=== PATIENT | male | born 1965 | race Caucasian/White ===

== ENCOUNTER → 2018-10-18 11:17 | Outpatient (CLI) | payer OTHER, SELFPAY ==
[2018-10-18 12:25] LABS: Basophil# 0.02 X10^3/uL; Basophil% 0.4 % (0-1); Eosinophil# 0.01 X10^3/uL; Eosinophils% 0.2 % (0-5); Hematocrit 46.3 % (40-54); Hemoglobin 16.2 g/dl (13.0-16.5); Lymphocyte % 24.5 % (19-41); Mean Corpuscular Hgb 34.1 pg (27.0-32.0); Mean Corpuscular Volume 97.5 fL (80-94); Mean Platelet Vol. 8.8 fl (6.2-12.0); Monocyte# 0.39 X10^3/uL; Monocyte% 8.7 % (0-10); Neutrophil # 2.96 X10^3/uL (2.7-7.7); Platelet Count 277 K/mm3 (150-450); RBC Distribution Width CV 12.3 % (11.6-14.6); RBC Distribution Width SD 42.9 fl (35.1-43.9); Red Blood Count 4.75 M/mm3 (4.6-6.2); White Blood Count 4.5 K/mm3 (4.4-11.0)
[2018-10-18 12:26] LABS: POSITIVE COUNT NO; POSITIVE DIFFERENTIAL NO; POSITIVE MORPHOLOGY NO
[2018-10-18 12:53] LABS: Vitamin D,25 Hydroxy 57.2 ng/mL (29.95-100.01)
[2018-10-18 12:54] LABS: Anion Gap 8 (5-15); BUN 16 mg/dL (7-18); BUN/Creat Ratio 14.8 RATIO (10-20); Calcium,Total 9.4 mg/dL (8.5-10.1); Chloride 104 mmol/L (98-107); Cholesterol 215 mg/dL (200); Creatinine, Serum 1.08 mg/dL (0.70-1.30); EST Glomerular Filtration Rate 76 mL/min (>60); Est Glom Filt Rate - Afr Amer 92 mL/min (>60); Glucose 87 mg/dL (74-106); High Density Lipoprotein 65 mg/dL; PSA,Total - Annual Screen 1.75 ng/mL (0.00-4.00); Potassium 4.1 mmol/L (3.5-5.1); Sodium Level 140 mmol/L (136-145); Triglycerides 84 mg/dL; Very Low Density Lipoprotein 17 mg/dL (5-40)
== END ==
PROVIDERS: Family Provider Family Medicine; PCP Family Medicine; Visit Provider Family Medicine
DX: Z00.00 Encounter for general adult medical examination without abnormal findings (principal); Z12.5 Encounter for screening for malignant neoplasm of prostate; Z13.220 Encounter for screening for lipoid disorders
CPT/HCPCS: 36415; 80048; 80061; 82306; 84153; 85025; G0103

== ENCOUNTER → 2019-03-21 15:03 | Outpatient (CLI) | payer OTHER, SELFPAY ==
--- NOTE | 2019-03-21 | POL_PTH ---
PATIENT: YOLA HANNON LOC: [facility] U#:[id number] AGE/SX: 60/M ROOM: RE03/21/[address]: Dr. Jama Sinclair MD : [id number] BED: DIS: SPEC #: [id number] RECD: 03/21/19 14:33 STATUS: LATOYA BALAJI #: [id number] BASILIO: 03/21/19 00:[address]: Jama Sinclair DEPT: SURGICAL PATHOLOGY RECD BY: Alesia Robertson ENTERED: 03/21/19 15:36 SP TYPE: Polyp OTHR DR: Dr. Connor Collins MD [facility] Tissues: POLYP Procedures: Surgery Specimen Level IV HEADER OPERATION: Colonoscopy with biopsy PRE-OP DIAGNOSIS: Screening TISSUE SUBMITTED: Biopsy cecal polyp, rule out adenoma MICROSCOPIC DIAGNOSIS Cecal polyp, biopsy: Fragments of hyperplastic polyp. SJ:uyen 03/22/19 MICROSCOPIC DESCRIPTION Slides are reviewed. GROSS DESCRIPTION Received in fixative is one container labeled with the patient's name and designated biopsy polyp. The specimen consists of multiple irregular fragments of light monteiro soft tissue that in aggregate measure 0.5 x 0.3 x 0.1 cm. The specimen is totally submitted in one cassette. / SJ:uyen 03/21/19 TC:1 CPT: 87302
== END ==
PROVIDERS: Family Provider Family Medicine; PCP Family Medicine; Referring Provider Internal Medicine Gastroenterology; Visit Provider Internal Medicine Gastroenterology
DX: Z12.11 Encounter for screening for malignant neoplasm of colon (principal)
CPT/HCPCS: 88305

== ENCOUNTER 2022-12-18 11:05 | Inpatient (IN) | payer OTHER, SELFPAY ==
[2022-12-18 11:06] VITALS: BP 145/89; PULSE 83; RESP 17; TEMP 36.1; O2SAT 100; BMI 23.9
--- NOTE | 2022-12-18 11:17 | CT_ITS ---
STUDY: CT ABDOMEN AND PELVIS WITHOUT CONTRAST REASON FOR EXAM: Male, 57 years old. Abd pain, vomiting RADIATION DOSAGE (If Supplied By Facility): CTDIvol = ( 7.60 ) mGy, DLP = ( 395.17 ) mGycm TECHNIQUE: Transaxial images were obtained from the dome of the diaphragm to the symphysis pubis without oral contrast, and without intravenous contrast. Sagittal and coronal images were reconstructed. Individualized dose optimization techniques were used for this CT. COMPARISON: None. FINDINGS: The visualized lung bases are unremarkable. The visualized portions of the heart are within normal limits. Normal liver. Normal gallbladder and extrahepatic biliary system. Normal spleen. Normal pancreas. Normal bilateral adrenal glands. Normal right kidney. Normal left kidney. Distended stomach with fluid and oral contrast material. There are dilated loops of the small intestine with a non-distended colon consistent with a small bowel obstruction. The transition point is in the left lower quadrant in the mid ileal loops. Questionable anastomosis at that site. This is best seen on axial image #75 and coronal image #70. A large amount of fecal material is seen in the colon. The appendix is visualized and appears normal. There is minimal atherosclerotic calcification of the abdominal aorta, without a demonstrated aneurysm. Normal inferior vena cava. Normal retroperitoneum. Normal urinary bladder. Normal abdominal wall. Loss of the normal lumbar lordosis. There is evidence of retrolisthesis of L5 on S1 with irregularity seen along the inferior endplate of the L5 vertebrae as well as the superior endplate of the S1 vertebrae. CT/Abdomen/Pel W ORAL Cont Only IMPRESSION: Findings in comparison with small bowel obstruction with the transition point in the left lower quadrant in mid ileal loops as described. Electronically Signed: Joel Simon MD at 14:11 EST ,
--- NOTE | 2022-12-18 11:17 | EX.ED.DYSGE1 ---
HPI History of Present Illness Chief Complaint: Abd Pain Informant: patient Onset/Context/Timing Onset: Yesterday Context: Gradual Onset Current Severity: Moderate Maximum Severity: Moderate Narrative Narrative: Patient present secondary to abdominal pain with vomiting and diarrhea. He states around 7 PM last evening he started getting abdominal cramping and had diarrhea. Earlier this morning he started having vomiting. states the most recent episode of vomitus looked like he was passing stool. She denies that it looked like coffee-ground emesis. No blood associated with the vomitus. No fever or chills. Only prior abdominal surgery was kidney surgery in his late teens. [facility] Medical History (Updated 12/18/22 @ 15:[address] Clotilde Peraza MD) UPJ obstruction, congenital Medical History no medical history no medical history Home Medications NK 12/18/22 [History Last Taken Unknown] Allergy/AdvReac Type Severity Reaction Status Date / Time No Known Allergies Allergy Verified 12/18/22 11:05 Social History Smoking Status: Never smoker ROS ROS ED Constitutional Constitutional ED: Denies chills or fever(s) Eyes Eyes: Denies change in vision or discharge from eye(s) ENT ENT ED: Denies discharge from eye(s), rhinorrhea or sore throat Cardiovascular Cardiovascular: Denies chest pain or palpitations Respiratory/Chest Respiratory/Chest: Denies cough or dyspnea Gastrointestinal Gastrointestinal: Reports abdominal pain, diarrhea, nausea and vomiting Genitourinary Genitourinary ED: Denies dysuria Musculoskeletal Musculoskeletal: Denies back pain or extremity pain Integumentary Denies Abrasions or rash Neurologic Neurologic: Denies headache(s) or weakness Psychiatric Psychiatric: Denies anxiety or depression Allergic/Immunologic Allergic/Immunologic ED: Denies lip swelling or urticaria EXAM Physical Exam Const Vital Signs: 12/18/22 11:06 12/18/22 14:56 Temperature 96.9 F L Temperature Source Temporal Pulse Rate 83 77 Respiratory Rate 17 16 Blood Pressure 145/89 H 159/99 H Blood Pressure Mean 107 119 Pulse Ox 100 100 Oxygen Delivery Method Room Air Room Air Positive well nourished and well developed General Appearance ED: well developed HEENT Reports normocephalic and head/scalp atraumatic Eyes PERRL and EOMs intact bilaterally Neck supple Chest Wall inspection of chest normal and palpation of chest normal Resp normal respiratory effort and clear to auscultation bilaterally Cardio regular rate and regular rhythm GI GI Narrative: Abdomen soft with no focal tenderness palpation. Minimal diffuse tenderness. No guarding or rebound. Palpation: soft Back/Spine no CVA tenderness Extremity normal to inspection Neuro oriented x3 and no sensory deficits noted Sensorium / Orientation: alert Motor Exam: strength 5/5 throughout Psych mental status grossly normal Skin no rashes or lesions noted MDM MDM MDM Narrative Medical decision making narrative: Patient is given morphine and Zofran along with IV fluids. Lab work obtained to evaluate for leukocytosis. Chemistry studies obtained to evaluate for electrolyte derangement. CT scan of the abdomen and pelvis obtained with contrast. Lab Data Attestation: I reviewed the patient's lab results. Labs: Laboratory Results - last 24 hr 12/18/22 12/18/22 11:30 11:30 WBC 12.0 H RBC 5.32 Hgb 17.9 H Hct 51.7 MCV 97.2 H MCH 33.6 H MCHC 34.6 RDW Std Deviation 42.5 RDW Coeff of Merle 11.9 Plt Count 314 MPV 8.7 Immature Gran % (Auto) 0.400 Neut % (Auto) 88.7 H Lymph % (Auto) 5.2 L Gregory % (Auto) 5.5 Eos % (Auto) 0.0 Baso % (Auto) 0.2 Absolute Neuts (auto) 10.7 H Absolute Lymphs (auto) 0.62 L Nucleated RBC % 0 Sodium 142 Potassium 4.2 Chloride 102 Carbon Dioxide 28.0 Anion Gap 12 BUN 19 H Creatinine 1.18 Estim Creat Clear Calc 78.06 Est GFR (MDRD) Af Amer 82 Est GFR (MDRD) Non-Af 68 BUN/Creatinine Ratio 16.1 Glucose 165 H Calcium 10.1 Total Bilirubin 0.90 Direct Bilirubin 0.23 AST 19 ALT 32 Alkaline Phosphatase 107 Total Protein 8.0 Albumin 4.6 Globulin 3.4 Lipase 207 Radiography Diagnostic Testing: Clinical Impression(s) from Imaging Studies Abdomen CT 12/18/22 11:17 IMPRESSION: Findings in comparison with small bowel obstruction with the transition point in the left lower quadrant in mid ileal loops as described. Electronically Signed: Joel Simon MD at 14:11 EST , Treatment and Re-Evaluation Narrative: CBC reveals white count elevated at 12.0 with left shift of 88% neutrophils. Chemistry studies unremarkable other than a slightly elevated BUN at 19. Glucose is 165. LFTs and lipase are normal. Patient did receive an additional dose of IM Phenergan for continued nausea. CT scan of the abdomen and pelvis reveals small bowel obstruction with transition point in the left lower quadrant. I had actually received a phone call from Dr. Crabtree as he had seen the images. He requested NG tube be placed and he will be down to see the patient for admission. Patient and at bedside have been updated. Discharge Plan Triage Chief Complaint: Abd Pain ED Provider: Clotilde Peraza Dx/Rx/DC Orders Clinical Impression: SBO (small bowel obstruction) Prescriptions: No Action NK Primary Care Provider: Mello Galindo Referrals: Mello Galindo MD [Primary Care Provider] - Disposition Disposition: Acute Care Hospital [facility]
[2022-12-18 11:37] LABS: Absolute Lymphocyte Count 0.62 X10^3/uL (0.83-4.51); Absolute Neutrophil Count 10.7 X10^3/uL (2.0-7.7); Basophil# 0.02 X10^3/uL; Basophil% 0.2 % (0-1); Hematocrit 51.7 % (40-54); Hemoglobin 17.9 g/dL (13.0-16.5); Lymphocyte # 0.62 X10^3/ul (0.83-4.51); Lymphocyte % 5.2 % (19-41); Mean Corp Hgb Conc 34.6 g/dL (32-36); Mean Corpuscular Hgb 33.6 pg (27.0-32.0); Mean Corpuscular Volume 97.2 fL (80-94); Mean Platelet Vol. 8.7 fl (6.2-12.0); Monocyte# 0.66 X10^3/uL; Monocyte% 5.5 % (0-10); NRBC Flagged by Analyzer 0 % (0-5); Neutrophil # 10.67 X10^3/uL (2.7-7.7); Neutrophil % 88.7 % (47-70); Platelet Count 314 K/mm3 (150-450); RBC Distribution Width CV 11.9 % (11.6-14.6); RBC Distribution Width SD 42.5 fl (35.1-43.9); Red Blood Count 5.32 M/mm3 (4.6-6.2)
[2022-12-18] MEDS: 0.9% Normal Saline 1,000 ML 1000 ML IV (11:39)
[2022-12-18] MEDS: Ondansetron 4 MG/2 ML Vial IV ×2 (11:39→19:52)
[2022-12-18] MEDS: Morphine 4 MG/ML Syringe IV (11:39)
[2022-12-18 11:58] LABS: AST(SGOT) 19 U/L (15-37); Alanine Aminotransfer ALT/SGPT 32 U/L (16-61); Albumin, Serum 4.6 g/dL (3.2-5.0); Alkaline Phosphatase 107 U/L (45-117); Anion Gap 12 (5-15); BUN 19 mg/dL (7-18); BUN/Creat Ratio 16.1 RATIO (10-20); Bilirubin, Direct 0.23 mg/dL (0.00-0.30); Calcium,Total 10.1 mg/dL (8.5-10.1); Chloride 102 mmol/L (98-107); Creatinine, Serum 1.18 mg/dL (0.70-1.30); EST Glomerular Filtration Rate 68 mL/min (>60); Est Glom Filt Rate - Afr Amer 82 mL/min (>60); Estimated Creatinine Clearance 78.06 ml/min; Globulin 3.4 g/dL (2.2-4.2); Glucose 165 mg/dL (74-106); Lipase 207 U/L (73-393); Potassium 4.2 mmol/L (3.5-5.1); Sodium Level 142 mmol/L (136-145)
[2022-12-18] MEDS: 0.9% Normal Saline 1,000 ML 150 ML IV (13:10)
[2022-12-18] MEDS: proMETHazine 25 MG/ML Syringe 12.5 MG IM (13:48)
--- NOTE | 2022-12-18 14:24 | RAD_ITS ---
STUDY: X-RAY - ABDOMEN/PELVIS REASON FOR EXAM: Male, 57 years old. NG tube placement -- KUB with both diaphragms for NG/OG Verification TECHNIQUE: Single AP view of the abdomen / pelvis. COMPARISON: None. FINDINGS: Normal visualized lung bases. The tip of the nasogastric tube is in the distal body of the stomach. RAD/Abdomen Single View (Portable) IMPRESSION: The tip of the nasogastric tube is in the distal portion of the body of the stomach. Electronically Signed: Joel Simon MD at 15:10 EST ,
[2022-12-18] MEDS: Oxymetazoline 0.05% 1 SPRAY SPRAY.BTL 2 SPRAY NASAL (14:45)
[2022-12-18 14:56] VITALS: BP 159/99; PULSE 77; RESP 16; O2SAT 100
[2022-12-18 15:05] VITALS: BP 166/95; PULSE 73; RESP 16; TEMP 36.7; O2SAT 98
--- NOTE | 2022-12-18 15:22 | PCM.HP.STD ---
HPI - General HPI Narrative YOLA HANNON, is a 57 M who presents with abdominal pain and nausea and vomiting. Patient reports nausea and vomiting that started overnight. He says he ate dinner last night. He says he had a bowel movement last night. He says he passed a scant amount of gas this morning. Abdominal pain is diffuse. He has never had a bowel obstruction in the past. He has had a large laparotomy incision from a kidney surgery when he was young man. [facility] Medical History (Updated 12/18/22 @ 15:[address] Clotilde Peraza MD) UPJ obstruction, congenital Medical History no medical history Home Medications NK 12/18/22 [History Last Taken Unknown] Allergy/AdvReac Type Severity Reaction Status Date / Time No Known Allergies Allergy Verified 12/18/22 11:05 Social History Smoking Status: Never smoker ROS Constitutional Constitutional: Denies anorexia, fatigue or fever(s) Eyes Eyes: Denies blurry vision ENT HEENT: Denies abnormal hearing Cardiovascular Cardiovascular: Denies chest pain Respiratory/Chest Respiratory/Chest: Denies cough or dyspnea Gastrointestinal Gastrointestinal: Reports abdominal pain, nausea and vomiting; Denies constipation, diarrhea or dysphagia Genitourinary Genitourinary: Denies change in urinary stream Musculoskeletal Musculoskeletal: Denies abnormal gait Integumentary Integumentary: Denies jaundice Neurologic Neurologic: Denies abnormal gait Psychiatric Psychiatric: Denies anxiety or depression Endocrine Endocrinology: Denies flushing Hematologic/Lymphatic Hematologic/Lymphatic: Denies easy bleeding Vital Signs Vital Signs Vital Signs: 12/18/22 11:06 12/18/22 14:56 12/18/22 15:05 Temperature 96.9 F L 98.0 F Temperature Source Temporal Oral Pulse Rate 83 77 73 Respiratory Rate 17 16 16 Blood Pressure 145/89 H 159/99 H 166/95 H Blood Pressure Mean 107 119 118 Pulse Ox 100 100 98 Oxygen Delivery Method Room Air Room Air Room Air Weight Weight: 181 lb 8 oz Body Mass Index (BMI) 23.9 Physical Exam Const oriented x3 and no apparent distress Resp normal respiratory effort Cardio regular rate and regular rhythm GI soft to palpation Inspection: abdominal distention Palpation: tender Extremity normal to inspection Results Lab / Micro Data Result Diagrams: 12/18/22 11:30 12/18/22 11:30 Labs: Laboratory Results - last 24 hr 12/18/22 11:30: WBC 12.0 H, RBC 5.32, Hgb 17.9 H, Hct 51.7, MCV 97.2 H, MCH 33.6 H, MCHC 34.6, RDW Std Deviation 42.5, RDW Coeff of Merle 11.9, Plt Count 314, MPV 8.7, Immature Gran % (Auto) 0.400, Neut % (Auto) 88.7 H, Lymph % (Auto) 5.2 L, [place] % (Auto) 5.5, Eos % (Auto) 0.0, Baso % (Auto) 0.2, Absolute Neuts (auto) 10.7 H, Absolute Lymphs (auto) 0.62 L, Nucleated RBC % 0 12/18/22 11:30: Sodium 142, Potassium 4.2, Chloride 102, Carbon Dioxide 28.0, Anion Gap 12, BUN 19 H, Creatinine 1.18, Estim Creat Clear Calc 78.06, Est GFR (MDRD) Af Amer 82, Est GFR (MDRD) Non-Af 68, BUN/Creatinine Ratio 16.1, Glucose 165 H, Calcium 10.1, Total Bilirubin 0.90, Direct Bilirubin 0.23, AST 19, ALT 32, Alkaline Phosphatase 107, Total Protein 8.0, Albumin 4.6, Globulin 3.4, Lipase [address] 12/18/22 11:17 IMPRESSION: Findings in comparison with small bowel obstruction with the transition point in the left lower quadrant in mid ileal loops as described. Electronically Signed: Joel Simon MD at 14:11 EST , KUB X-Ray 12/18/22 14:24 IMPRESSION: The tip of the nasogastric tube is in the distal portion of the body of the stomach. Electronically Signed: Joel Simon MD at 15:10 EST , Assessment & Plan Assessment/Plan (1) SBO (small bowel obstruction): PLAN: The patient has CT scan which shows dilated small bowel up to a transition point with decompressed distal small bowel. There is stool in the colon but the patient's stomach is extremely distended. NG was placed and over a liter of fluid was removed. The patient CT scan suggest a small bowel obstruction. I plan on decompressing him with NG overnight and admitting him to the floor and then taking him for surgery tomorrow for exploration. I discussed exploratory laparoscopy with the patient in detail with possible open possible bowel resection as needed. I discussed the risks of the surgery such as bleeding, infection, injury to other organs. Patient understands the risks and is when to proceed. Austyn Crabtree MD Pager: [facility] [address] [place] [address], [address] [place] [address] Office:
[2022-12-18 16:37] VITALS: BMI 23.9
--- NOTE | 2022-12-18 16:38 | EKG12_ITS ---
Test Reason : AM EKG Blood Pressure : / mmHG Vent. Rate : 081 BPM Atrial Rate : 081 BPM P-R Int : 140 ms QRS Dur : 094 ms QT Int : 366 ms P-R-T Axes : 034 062 039 degrees QTc Int : 425 ms Normal sinus rhythm Normal ECG No previous ECGs available Confirmed by KIERSTEN ROSARIO, CARMELA ([id number]), visual effects editor JIMMY MCGILL ([id number]) on 12/22/2022 9:09:05 AM Referred By: LANDY Confirmed By:CARMELA BURCH MD
[2022-12-18 16:45] VITALS: BP 151/90; PULSE 73; RESP 18; TEMP 36.6; O2SAT 98
[2022-12-18] MEDS: 0.9% Normal Saline 1,000 ML 125 ML IV (17:05)
[2022-12-18 19:55] VITALS: BP 150/75; PULSE 78; RESP 18; TEMP 37; O2SAT 99
[2022-12-19] VITALS (9 sets, daily range): BP systolic 125–158; BP diastolic 74–100; PULSE 66–93; RESP 16–18; TEMP 36.6–37.5; O2SAT 93–100
[2022-12-19] MEDS: 0.9% Normal Saline 1,000 ML 125 ML IV ×4 (01:11→21:52)
[2022-12-19 05:43] LABS: Absolute Lymphocyte Count 1.12 X10^3/uL (0.83-4.51); Absolute Neutrophil Count 5.1 X10^3/uL (2.0-7.7); Basophil# 0.04 X10^3/uL; Basophil% 0.6 % (0-1); Eosinophil# 0.08 X10^3/uL; Eosinophils% 1.1 % (0-5); Hemoglobin 14.2 g/dL (13.0-16.5); Lymphocyte # 1.12 X10^3/ul (0.83-4.51); Lymphocyte % 16.1 % (19-41); Mean Corp Hgb Conc 33.8 g/dL (32-36); Mean Corpuscular Hgb 33.7 pg (27.0-32.0); Mean Corpuscular Volume 99.8 fL (80-94); Mean Platelet Vol. 8.7 fl (6.2-12.0); Monocyte# 0.63 X10^3/uL; NRBC Flagged by Analyzer 0 % (0-5); Neutrophil # 5.07 X10^3/uL (2.7-7.7); Neutrophil % 72.8 % (47-70); Platelet Count 253 K/mm3 (150-450); RBC Distribution Width CV 12.2 % (11.6-14.6); RBC Distribution Width SD 43.9 fl (35.1-43.9); Red Blood Count 4.21 M/mm3 (4.6-6.2)
[2022-12-19 06:26] LABS: Anion Gap 7 (5-15); BUN 21 mg/dL (7-18); BUN/Creat Ratio 20.8 RATIO (10-20); Calcium,Total 8.3 mg/dL (8.5-10.1); Chloride 111 mmol/L (98-107); Creatinine, Serum 1.01 mg/dL (0.70-1.30); EST Glomerular Filtration Rate 81 mL/min (>60); Est Glom Filt Rate - Afr Amer 98 mL/min (>60); Estimated Creatinine Clearance 91.19 ml/min; Glucose 107 mg/dL (74-106); Magnesium 1.8 mg/dL (1.6-2.6); Phosphorus 3.6 mg/dL (2.5-4.9); Sodium Level 143 mmol/L (136-145)
--- NOTE | 2022-12-19 07:06 | PN.SURG_ITS ---
Subjective Subjective Patient reports his abdominal pain is improved. He is still not having any flatus. No bowel movements. Objective Data Objective Data Vital Signs: Vital Signs Temp Pulse Resp BP Pulse Ox O2 Del Method 98.6 F 80 18 141/77 H 93 Room Air 12/19/22 01:58 12/19/22 01:58 12/19/22 01:58 12/19/22 01:58 12/19/22 01:58 12/19/22 01:58 Oxygen Delivery Method Room Air Weight: 181 lb 8 oz Body Mass Index (BMI) 23.9 Intake & Output: Intake and Output for Last 24 Hours 12/17/22 12/18/22 12/19/22 23:59 23:59 23:59 Intake Total 1722.5 / 1722.5 1040 / 1040 Output Total 2350 / 2350 400 / 400 Balance -627.5 / -627.5 640 / 640 Lab / Micro Data Result Diagrams: 12/19/22 05:04 12/19/22 05:04 Labs: Laboratory Results - last 24 hr 12/18/22 11:30: WBC 12.0 H, RBC 5.32, Hgb 17.9 H, Hct 51.7, MCV 97.2 H, MCH 33.6 H, MCHC 34.6, RDW Std Deviation 42.5, RDW Coeff of Merle 11.9, Plt Count 314, MPV 8.7, Immature Gran % (Auto) 0.400, Neut % (Auto) 88.7 H, Lymph % (Auto) 5.2 L, [place] % (Auto) 5.5, Eos % (Auto) 0.0, Baso % (Auto) 0.2, Absolute Neuts (auto) 10.7 H, Absolute Lymphs (auto) 0.62 L, Nucleated RBC % 0 12/18/22 11:30: Sodium 142, Potassium 4.2, Chloride 102, Carbon Dioxide 28.0, Anion Gap 12, BUN 19 H, Creatinine 1.18, Estim Creat Clear Calc 78.06, Est GFR (MDRD) Af Amer 82, Est GFR (MDRD) Non-Af 68, BUN/Creatinine Ratio 16.1, Glucose 165 H, Calcium 10.1, Total Bilirubin 0.90, Direct Bilirubin 0.23, AST 19, ALT 32, Alkaline Phosphatase 107, Total Protein 8.0, Albumin 4.6, Globulin 3.4, Lipase 207 12/19/22 05:04: WBC 7.0, RBC 4.21 L, Hgb 14.2, Hct 42.0, MCV 99.8 H, MCH 33.7 H, MCHC 33.8, RDW Std Deviation 43.9, RDW Coeff of Merle 12.2, Plt Count 253, MPV 8.7, Immature Gran % (Auto) 0.400, Neut % (Auto) 72.8 H, Lymph % (Auto) 16.1 L, [place] % (Auto) 9.0, Eos % (Auto) 1.1, Baso % (Auto) 0.6, Absolute Neuts (auto) 5.1, Absolute Lymphs (auto) 1.12, Nucleated RBC % 0 12/19/22 05:04: Sodium 143, Potassium 4.0, Chloride 111 H, Carbon Dioxide 25.0, Anion Gap 7, BUN 21 H, Creatinine 1.01, Estim Creat Clear Calc 91.19, Est GFR (MDRD) Af Amer 98, Est GFR (MDRD) Non-Af 81, BUN/Creatinine Ratio 20.8 H, Glucose 107 H, Calcium 8.3 L, Phosphorus 3.6, Magnesium 1.8 Radiography Diagnostic Testing: Radiology Impression Abdomen CT 12/18/22 11:17 IMPRESSION: Findings in comparison with small bowel obstruction with the transition point in the left lower quadrant in mid ileal loops as described. Electronically Signed: Joel Simon MD at 14:11 EST , KUB X-Ray 12/18/22 14:24 IMPRESSION: The tip of the nasogastric tube is in the distal portion of the body of the stomach. Electronically Signed: Joel Simon MD at 15:10 EST , Physical Exam Const oriented x3 Resp normal respiratory effort GI soft to palpation and non-tender Inspection: Negative for abdominal distention Assessment & Plan Assessment/Plan (1) SBO (small bowel obstruction): PLAN: Patient had around 2 L out of his NG yesterday. He is still not passing any flatus but he is much more decompressed. I will take him later this morning for exploratory laparoscopy. Austyn Crabtree MD Pager: [facility] [address] [place] [address], [address] [place] [address] Office:
--- NOTE | 2022-12-19 09:20 | CASEMGMT ---
CORY WOOD DC Planning Assessment: Face to Face with patient for initial transition planning/care coordination assessment. Pt alert and oriented x4. CORY WOOD introduced self and role at [facility], pt voices understanding and is agreeable to participating in the assessment with his at the bedside. Care providers, pharmacy,?and demographics verified. ? Admitting dx: SBO PCP: Josie Specialists: none Preferred Pharmacy: [facility] Insurance:MMO Prescription Benefit: Yes? Living Will/HPOA: Yes/Yes: HPOA Anjelica LNOK: Anjelica Living Arrangements: Pt lives with his Anjelica and two adult daughters in a split level home with multiple steps throughout the home and three to enter. Pt states he is independent with all ADLs including self care and household tasks. Transportation: pt drives and his is able to drive if he is unable. DME/HHC/SNF: denies ? Plan: Pt plans to return home at discharge and denies any needs or concerns at this time. Will continue to monitor and assist with DC needs as identified. Han Martin RN CM
--- NOTE | 2022-12-19 11:24 | PCM.OPRPT ---
Report of Operation Date of Procedure: 12/19/22 Pre-Operative Diagnosis: Small bowel obstruction Post-Operative Diagnosis: Small bowel obstruction Surgery/Procedure Performed:: Exploratory laparoscopy with lysis of adhesions Description of Procedure: Patient was brought back the operating room and general anesthesia was induced. The abdomen was prepped and draped in usual sterile fashion. A midline incision was made superior to the umbilicus and deepened to the fascia was was elevated and then incised. A port was placed through this incision and the abdomen was insufflated 15 mmHg. Under direct visualization a right lateral 5 mm port was placed as well as a right lower quadrant 5 mm port and a lower midline 5 mm port. Patient was placed in Trendelenburg position. The patient had adhesions throughout his abdomen. Every area of small bowel was adhesed to another area of small bowel or to the abdominal wall. The appendix was identified which helped to identify the distal ileum. The distal ileum appeared distended and did not appear decompressed. It was followed backward until heavy adhesions were encountered. As many adhesions as possible were taken down to trace the bowel back but at some point it became too dangerous and I believe that we are in too much risk of injuring bowel by taking down more adhesions. There was no decompressed bowel identified or transition point identified. As far as I can tell there was contents making it all the way to the ileocecal valve. At this point the ports were removed and the abdomen was desufflated. The fascia was grasped and elevated and closed with a [id number] 0 Vicryl suture at the midline incision. All the other incisions were injected with local anesthetic and then all the skin incisions were closed with interrupted 4-0 Monocryl suture and Steri-Strips and bandages. Patient was taken to PACU in stable condition. Admit VTE Documentation VTE Mechan Device Prophylaxis: SCD's
--- NOTE | 2022-12-19 11:28 | SUR.PHASEI ---
, oralia has patient's wedding band pre surgery
[2022-12-20 00:12] VITALS: BP 138/78; PULSE 93; RESP 16; TEMP 37.1; O2SAT 94
[2022-12-20 05:16] LABS: Absolute Lymphocyte Count 1.16 X10^3/uL (0.83-4.51); Absolute Neutrophil Count 4.1 X10^3/uL (2.0-7.7); Basophil# 0.04 X10^3/uL; Basophil% 0.7 % (0-1); Eosinophil# 0.13 X10^3/uL; Eosinophils% 2.2 % (0-5); Hematocrit 38.7 % (40-54); Hemoglobin 12.9 g/dL (13.0-16.5); Lymphocyte # 1.16 X10^3/ul (0.83-4.51); Lymphocyte % 19.4 % (19-41); Mean Corp Hgb Conc 33.3 g/dL (32-36); Mean Corpuscular Hgb 33.4 pg (27.0-32.0); Mean Corpuscular Volume 100.3 fL (80-94); Mean Platelet Vol. 8.6 fl (6.2-12.0); Monocyte# 0.49 X10^3/uL; Monocyte% 8.2 % (0-10); NRBC Flagged by Analyzer 0 % (0-5); Neutrophil # 4.14 X10^3/uL (2.7-7.7); Neutrophil % 69.2 % (47-70); Platelet Count 208 K/mm3 (150-450); RBC Distribution Width CV 11.9 % (11.6-14.6); RBC Distribution Width SD 43.6 fl (35.1-43.9); Red Blood Count 3.86 M/mm3 (4.6-6.2)
[2022-12-20 05:40] LABS: Anion Gap 8 (5-15); BUN 15 mg/dL (7-18); BUN/Creat Ratio 16.9 RATIO (10-20); Calcium,Total 8.1 mg/dL (8.5-10.1); Chloride 110 mmol/L (98-107); Creatinine, Serum 0.89 mg/dL (0.70-1.30); EST Glomerular Filtration Rate 94 mL/min (>60); Est Glom Filt Rate - Afr Amer 113 mL/min (>60); Estimated Creatinine Clearance 103.49 ml/min; Glucose 89 mg/dL (74-106); Potassium 3.6 mmol/L (3.5-5.1); Sodium Level 143 mmol/L (136-145)
--- NOTE | 2022-12-20 05:40 | RAD_ITS ---
HISTORY: SBO. TECHNIQUE: XR Abdomen 1 View. COMPARISON: 12/18/2022. FINDINGS: BOWEL GAS PATTERN: Nasogastric tube tip in the upper abdomen in the region of the stomach. Moderate stool throughout the colon. Paucity of bowel gas in the midabdomen. FREE AIR: Not assessed on supine view. CALCIFICATIONS: No abnormal calcifications observed. BONES: Unremarkable. SOFT TISSUES: Mild elevation of the right hemidiaphragm RAD/Abdomen Single View (Portable) IMPRESSION: Nonspecific bowel gas pattern. Electronically Signed: Raisa Vasquez MD at 10:18 EST ,
[2022-12-20] MEDS: 0.9% Normal Saline 1,000 ML 125 ML IV ×3 (06:35→22:49)
[2022-12-20 07:09] VITALS: BP 150/83; PULSE 77; RESP 16; TEMP 36.6; O2SAT 95
[2022-12-20 09:22] VITALS: BP 146/81; PULSE 74; RESP 16; TEMP 37.1; O2SAT 97
--- NOTE | 2022-12-20 10:39 | PCM.PN.SRG ---
Subjective Subjective Patient reports that he is passing some flatus. No nausea or vomiting overnight. No abdominal pain. Objective Data Objective Data Vital Signs: Vital Signs Temp Pulse Resp BP Pulse Ox O2 Del Method 98.8 F 74 16 146/81 H 97 Room Air 12/20/22 09:22 12/20/22 09:22 12/20/22 09:22 12/20/22 09:22 12/20/22 09:22 12/20/22 09:22 Oxygen Delivery Method Room Air Weight: 181 lb 8 oz Body Mass Index (BMI) 23.9 Intake & Output: Intake and Output for Last 24 Hours 12/18/22 12/19/22 12/20/22 23:59 23:59 23:59 Intake Total 1722.5 / 1722.5 3913.75 / 3913.75 1594.58 / 1594.58 Output Total 2350 / 2350 1100 / 1100 975 / 975 Balance -627.5 / -627.5 2813.75 / 2813.75 619.58 / 619.58 Lab / Micro Data Result Diagrams: 12/20/22 05:07 12/20/22 05:07 Labs: Laboratory Results - last 24 hr 12/20/22 05:07: WBC 6.0, RBC 3.86 L, Hgb 12.9 L, Hct 38.7 L, MCV 100.3 H, MCH 33.4 H, MCHC 33.3, RDW Std Deviation 43.6, RDW Coeff of Merle 11.9, Plt Count 208, MPV 8.6, Immature Gran % (Auto) 0.300, Neut % (Auto) 69.2, Lymph % (Auto) 19.4, [place] % (Auto) 8.2, Eos % (Auto) 2.2, Baso % (Auto) 0.7, Absolute Neuts (auto) 4.1, Absolute Lymphs (auto) 1.16, Nucleated RBC % 0 12/20/22 05:07: Sodium 143, Potassium 3.6, Chloride 110 H, Carbon Dioxide 25.0, Anion Gap 8, BUN 15, Creatinine 0.89, Estim Creat Clear Calc 103.49, Est GFR (MDRD) Af Amer 113, Est GFR (MDRD) Non-Af 94, BUN/Creatinine Ratio 16.9, Glucose 89, Calcium 8.1 L Radiography Diagnostic Testing: Radiology Impression KUB X-Ray 12/20/22 05:40 IMPRESSION: Nonspecific bowel gas pattern. Electronically Signed: Raisa Vasquez MD at 10:18 EST , Physical Exam Const oriented x3 GI soft to palpation and non-tender Assessment & Plan Assessment/Plan (1) SBO (small bowel obstruction): PLAN: Patient only had 175 cc out of his NG this morning. He reports he is passing flatus with no abdominal pain. I will try to remove his NG and start him on clear liquids. KUB this morning showed nonspecific bowel pattern with a lot of stool in the colon. Austyn Crabtree MD Pager: [facility] [address] [place] [address], [address] [place] [address] Office:
[2022-12-20 15:26] VITALS: BP 146/86; PULSE 67; RESP 14; TEMP 37.2; O2SAT 100
[2022-12-20 21:00] VITALS: BP 132/85; PULSE 69; RESP 16; TEMP 36.8; O2SAT 100
[2022-12-20 22:00] VITALS: RESP 16; O2SAT 100
[2022-12-21 03:00] VITALS: BP 130/94; PULSE 71; RESP 16; TEMP 37.2; O2SAT 98
[2022-12-21 03:52] VITALS: RESP 16; O2SAT 100
[2022-12-21] MEDS: 0.9% Normal Saline 1,000 ML 125 ML IV (06:34)
--- NOTE | 2022-12-21 07:35 | PN.SURG_ITS ---
Subjective Subjective Patient tolerated clears yesterday. He has passed gas this morning once again but he has not had any bowel movements yet. He is not having any abdominal pain or nausea or vomiting this morning. Objective Data Objective Data Vital Signs: Vital Signs Temp Pulse Resp BP Pulse Ox O2 Del Method 99.0 F 71 16 130/94 H 100 Room Air 12/21/22 03:00 12/21/22 03:00 12/21/22 03:52 12/21/22 03:00 12/21/22 03:52 12/21/22 03:52 Oxygen Delivery Method Room Air Weight: 181 lb 8 oz Body Mass Index (BMI) 23.9 Intake & Output: Intake and Output for Last 24 Hours 12/19/22 12/20/22 12/21/22 23:59 23:59 23:59 Intake Total 3913.75 / 3913.75 3146.66 / 3146.66 968.75 / 968.75 Output Total 1100 / 1100 1775 / 2625 3150 / 3150 Balance 2813.75 / 2813.75 1371.66 / 521.66 -2181.25 / -2181.25 Lab / Micro Data Result Diagrams: 12/20/22 05:07 12/20/22 05:07 Radiography Diagnostic Testing: Radiology Impression KUB X-Ray 12/20/22 05:40 IMPRESSION: Nonspecific bowel gas pattern. Electronically Signed: Raisa Vasquez MD at 10:18 EST Reading Location ID and State: [facility] / [place] Tel , Service support , Physical Exam Const oriented x3 and no apparent distress Resp normal respiratory effort GI normal to inspection, nondistended, normoactive bowel sounds Assessment & Plan Assessment/Plan (1) SBO (small bowel obstruction): PLAN: Patient is passing flatus with good bowel sounds. He tolerated clear liquids. I will advance to a regular diet today. Austyn Crabtree MD Pager: [facility] [address] [place] [address], [address] [place] [address] Office:
--- NOTE | 2022-12-21 09:52 | NURSING ---
Pt walking fast in the [place] at this time. Has already walked around the whole unit 4 times at this particular time. Has been up walking several times thus far today.
[2022-12-21 10:15] VITALS: BP 148/88; PULSE 79; RESP 18; TEMP 37.2; O2SAT 100
--- NOTE | 2022-12-21 13:41 | DS.PCM_ITS ---
Providers Date of Admission: 12/18/22 Primary Care Physician: Dr. Mello Galindo MD Reason For Visit: SBO Diagnosis Discharge Diagnosis (1) SBO (small bowel obstruction): Status: Acute Code(s): K56.609 - Unspecified intestinal obstruction, unspecified as to partial versus complete obstruction Plan: Patient is passing flatus with good bowel sounds. He tolerated clear liquids. I will advance to a regular diet today. Austyn Crabtree MD Pager: [facility] [address] [place] [address], [address] [place] [address] Office: Medications at Discharge Home Medications acetaminophen 325 mg tablet (Tylenol) 650 mg PO Q4H PRN PRN Pain 1-10 Or Fever #0 tabs 12/21/22 Hospital Course Operations None Procedures None Summary of Care Provided Hospital Course: The patient was admitted with a small bowel obstruction. NG was placed in the ER. The following day the patient was taken for laparoscopy. Lysis of adhesions was performed. The day after that the patient's NG was removed and he was started on clear liquids which he tolerated. Today he is doing well and he is tolerating a regular diet so he will be discharged home. Weight / BMI Weight Weight: 181 lb 8 oz Body Mass Index (BMI) 23.9 ABG / Lab / Microbiology Data Result Diagrams: 12/20/22 05:07 12/20/22 05:07 D/C Instructions Discharge Diet: Light diet - advance as tolerated Discharge Activity: Return to Normal Activity and May Shower Lifting Restrictions: 20 lbs for 2 weeks Call your doctor if your incision/area has: Continuous Slow Oozing, Sudden Increased Bleeding, Increased Pain/ Swelling, Increased Redness, Foul Smelling Discharge and Swelling at the incision site Call your doctor if you observe: Fever of 101 or Higher Remove Dressing in: 2 days (Remove bandages in 2 days, remove Steri-Strips in 7 to 10 days) Cleanse incision/area with: Soap & Water Please Follow Up With: Austyn Crabtree MD When: Please call to schedule 2 week follow up appointment. [phone] Meaningful Use Info Meaningful Use Diagnoses (Choose all that apply): None applicable Discharge Plan Admission Admit Date/Time: 12/18/22 15:29 Attending Provider: Austyn Crabtree Primary Care Provider: Mello Galindo Discharge Orders/Prescriptions Prescriptions: New acetaminophen [Tylenol] 325 mg Tablet 650 mg PO Q4H PRN PRN (Reason: Pain 1-10 Or Fever) Qty: 0 0RF Referrals / Follow Up: Mello Galindo MD [Primary Care Provider] - Disposition Disposition (needs filled in before D/C Order can be placed): Home, Self Care
[2022-12-21 14:44] VITALS: BP 142/92; PULSE 65; RESP 18; TEMP 36.9; O2SAT 96
--- NOTE | 2022-12-21 14:47 | PHA.DC.MR ---
Pharmacy Service has performed discharge medication reconciliation for this patient. The patient's discharge medication list was reviewed for discrepancies and discrepancies were resolved. Home Medications acetaminophen 325 mg tablet (Tylenol) 650 mg PO Q4H PRN PRN Pain 1-10 Or Fever #0 tabs 12/21/22
--- NOTE | 2022-12-21 15:09 | CASEMGMT ---
RN NINA NOTE: Pt being discharged home. RN CM to room. Introduced self and role. Pt denies having any discharge planning needs or concerns. Fernando BSN RN CM
== END 2022-12-21 15:14 | disposition home or self-care (01) | DRG 358 ==
LOC: ED 15:00 → MS3 15:51
PROVIDERS: Admitting Provider Surgery; Emergency Provider Emergency Medicine; PCP Family Medicine; Visit Provider Surgery
PROC: 0WJG4ZZ Inspection of Peritoneal Cavity, Percutaneous Endoscopic Approach (ICD-10-PCS; CPT 49320; principal; 2022-12-19 09:15)
DX: K56.609 Unspecified intestinal obstruction, unspecified as to partial versus complete obstruction (principal)
CPT/HCPCS: 36415; 74018; 74176; 80048; 80076; 83690; 83735; 84100; 85025; 93005; 99285; J7030; A4216; J2405

== ENCOUNTER → 2023-09-20 | Outpatient (CLI) | payer OTHER, SELFPAY ==
[2023-09-20 10:18] LABS: Hematocrit 43.6 % (40-54); Hemoglobin 14.9 g/dL (13.0-16.5); Mean Corp Hgb Conc 34.2 g/dL (32-36); Mean Corpuscular Volume 99.5 fL (80-94); Mean Platelet Vol. 9.1 fl (6.2-12.0); Platelet Count 262 K/mm3 (150-450); RBC Distribution Width CV 11.8 % (11.6-14.6); RBC Distribution Width SD 43.4 fl (35.1-43.9); Red Blood Count 4.38 M/mm3 (4.6-6.2); White Blood Count 4.2 K/mm3 (4.4-11.0)
[2023-09-20 10:49] LABS: Vitamin D,25 Hydroxy 76.1 ng/mL
[2023-09-20 10:52] LABS: Cholesterol 182 mg/dL (200); Ferritin 126 ng/mL (26-388); High Density Lipoprotein 64 mg/dL; Iron 165 ug/dL (65-175); PSA,Total - Annual Screen 1.76 ng/mL (0.00-4.00); Triglycerides 85 mg/dL; Very Low Density Lipoprotein 17 mg/dL (5-40)
== END | disposition home or self-care (01) ==
PROVIDERS: PCP Family Medicine; Referring Provider Family Medicine; Visit Provider Family Medicine
DX: D64.9 Anemia, unspecified (principal); Z12.5 Encounter for screening for malignant neoplasm of prostate; Z13.21 Encounter for screening for nutritional disorder; Z13.220 Encounter for screening for lipoid disorders
CPT/HCPCS: 36415; 80061; 82306; 82728; 83540; 84153; 85027; G0103

== ENCOUNTER → 2025-02-21 | Outpatient (CLI) | payer OTHER, SELFPAY ==
[2025-02-21 10:20] LABS: Bacteria 0 SEEN /hpf (None Seen); Mucous, Urine 0 SEEN /hpf (<or=2+); Squamous Epithelial Cells - UA 0 SEEN /hpf (0-5)
[2025-02-21 12:23] LABS: Color, Urine Straw (Yellow); Glucose, Dipstick Normal (Normal); Ketone-Dipstick Negative (Negative); Leukocyte Esterase-Dipstick Negative /ul (Negative); Nitrite-Dipstick Negative (Negative); Occult Blood-Urine Negative /ul (Negative); Protein-Dipstick Negative (Negative); Urine Bilirubin Dipstick Negative (Negative); Urine Clarity Clear (Clear); Urine Urobilinogen Normal (Normal)
[2025-02-21 12:29] LABS: Absolute Lymphocyte Count 1.41 X10^3/uL (0.83-4.51); Absolute Neutrophil Count 2.2 X10^3/uL (2.0-7.7); Basophil# 0.03 X10^3/uL; Basophil% 0.7 % (0-1); Eosinophil# 0.06 X10^3/uL; Eosinophils% 1.5 % (0-5); Hematocrit 44.4 % (40-54); Hemoglobin 15.5 g/dL (13.0-16.5); Lymphocyte # 1.41 X10^3/ul (0.83-4.51); Lymphocyte % 34.6 % (19-41); Mean Corp Hgb Conc 34.9 g/dL (32-36); Mean Corpuscular Volume 97.4 fL (80-94); Mean Platelet Vol. 9.1 fl (6.2-12.0); Monocyte# 0.34 X10^3/uL; Monocyte% 8.3 % (0-10); NRBC Flagged by Analyzer 0 % (0-5); Neutrophil # 2.23 X10^3/uL (2.7-7.7); Neutrophil % 54.7 % (47-70); Platelet Count 269 K/mm3 (150-450); RBC Distribution Width CV 12.3 % (11.6-14.6); RBC Distribution Width SD 44.2 fl (35.1-43.9); Red Blood Count 4.56 M/mm3 (4.6-6.2); White Blood Count 4.1 K/mm3 (4.4-11.0)
[2025-02-21 13:02] LABS: Red Blood Cells-Urine 0-5 SEEN /hpf (0-5); White Blood Cells 0-5 SEEN /hpf (0-5)
[2025-02-21 14:34] LABS: Anion Gap 11 (5-15); BUN 16 mg/dL (4-19); BUN/Creat Ratio 16.1 RATIO (10-20); Calcium,Total 9.4 mg/dL (7.6-11.0); Carbon Dioxide 24.1 mmol/L (21.0-32.0); Chloride 104 mmol/L (98-108); Cholesterol 214 mg/dL (<=200); Creatinine, Serum 0.98 mg/dL (0.70-1.20); EST Glomerular Filtration Rate 89 (>60); Glucose 96 mg/dL (70-99); High Density Lipoprotein 68 mg/dL; Low Density Lipoprotein Calc. 126 mg/dL; PSA,Total - Annual Screen 1.91 ng/mL (0.02-4.00); Potassium 4.5 mmol/L (3.3-5.1); Sodium Level 139 mmol/L (133-145); Triglycerides 101 mg/dL; Very Low Density Lipoprotein 20 mg/dL (5-40); cholesterol:hdl ratio screen 3.16
== END | disposition home or self-care (01) ==
PROVIDERS: PCP Family Medicine; Referring Provider Family Medicine; Visit Provider Family Medicine
DX: Z00.00 Encounter for general adult medical examination without abnormal findings (principal); D64.9 Anemia, unspecified; Z13.1 Encounter for screening for diabetes mellitus; Z13.220 Encounter for screening for lipoid disorders; Z12.5 Encounter for screening for malignant neoplasm of prostate
CPT/HCPCS: 36415; 80048; 80061; 81001; 84153; 85025; G0103